=== PATIENT | male | born 1960 | race Caucasian/White ===

== ENCOUNTER 2023-06-17 12:37 | Emergency (ER) | payer OTHER ==
[~2023-06-17] VITALS: Ht 175.3 cm; Wt 80.0 kg
[2023-06-17 12:41] VITALS: TEMP 98.2; O2SAT 96
[2023-06-17] MEDS: DICYCLOMINE 10 MG/5 ML ORAL SYR PO STA (13:03)
[2023-06-17] MEDS: MAGNESIUM/ALUMINUM HYDROXIDE/SIMETHICONE 30ML UDC PO STA (13:04)
[2023-06-17] MEDS: ONDANSETRON 4MG ODT PO STA (13:04)
[2023-06-17] MEDS: DICYCLOMINE HCL 10MG CAPSULE PO NR (13:05)
[2023-06-17 13:30] LABS: BASOPHILS % 0.2 % (0.0-2.0); EOSINOPHILS % 1.2 % (0.0-5.0); HEMATOCRIT. 49.6 % (42.0-52.0); HEMOGLOBIN. 16.3 g/dL (14.0-18.0); LYMPHOCYTES % 9.8 % (20.0-50.0); MEAN CORPUSCULAR HEMOGLOBIN 27.6 pg (28.0-32.0); MEAN CORPUSCULAR HGB CONC 32.9 g/dL (31.0-37.0); MEAN CORPUSCULAR VOLUME 83.8 fL (80.0-94.0); MONOCYTES % 5.1 % (2.0-8.0); NEUTROPHILS % 83.7 % (40.0-76.0); PLATELET 169 x1000/uL (130-400); RED BLOOD CELL COUNT 5.92 mill/uL (4.7-6.1); RED CELL DISTRIBUTION WIDTH 14.8 % (11.6-14.6)
[2023-06-17 13:41] LABS: ALANINE AMINOTRANSFERASE 20 IU/L (10-49); ALBUMIN 4.5 g/dL (3.2-4.8); ASPARTATE AMINOTRANSFERASE 20 IU/L (<34); BILIRUBIN TOTAL 0.6 mg/dL (0.1-1.0); CALCIUM 8.6 mg/dL (8.7-10.4); CARBON DIOXIDE 27 mEq/L (21-32); CHLORIDE 106 mEq/L (98-107); CREATININE 0.8 mg/dL (0.6-1.3); GLUCOSE 124 mg/dL (70-105); POTASSIUM 4.1 mEq/L (3.5-5.1); PROTEIN TOTAL 7.2 g/dL (6.0-8.3); SODIUM 140 mEq/L (136-145); UREA NITROGEN BLOOD 14 mg/dL (9-23)
[2023-06-17 13:47] LABS: CLARITY URINE CLEAR (CLEAR); COLOR URINE YELLOW (YELLOW); GLUCOSE URINE TRACE (NEGATIVE); KETONES URINE NEGATIVE (NEGATIVE); LEUKOCYTE ESTERASE URINE NEGATIVE (NEGATIVE); NITRITE URINE NEGATIVE (NEGATIVE); OCCULT BLOOD URINE NEGATIVE (NEGATIVE); PH URINE 6.5 (4.5-8.0); PROTEIN URINE 2+ (NEGATIVE); SPECIFIC GRAVITY URINE 1.028 (1.005-1.030)
[2023-06-17 14:17] LABS: ETHANOL BLOOD < 10 mg/dL (<10)
[2023-06-17 14:27] LABS: FINE GRANULAR CASTS URINE 0-5 /lpf; WBC URINE 0-2 /hpf (0-2)
[2023-06-17 14:28] LABS: RBC URINE NONE SEEN /hpf (0-2)
[2023-06-17 14:29] LABS: HYALINE CASTS URINE 0-5 /lpf; MUCUS URINE 2+ /lpf (NONE/TRACE)
[2023-06-17 14:30] LABS: BACTERIA URINE TRACE; SQUAMOUS EPITHELIAL CELL URINE NONE SEEN /lpf (RARE/1+)
[2023-06-17 15:40] VITALS: BP 128/81; PULSE 81; RESP 16
[2023-06-17] MEDS ORDERED: ONDA4TAB11 PO (15:41)
== END 2023-06-17 15:41 | disposition home or self-care (01) ==
LOC: ER 12:37
DX: A08.4 Viral intestinal infection, unspecified (principal)
CPT/HCPCS: 80053; 81003; 80320; 83605; 83690; 85025; 36415; 76700; 99284; Q0162; G0480